=== PATIENT | female | born 1945 ===

== ENCOUNTER 2020-06-17 10:14 | Emergency (ER) | payer OTHER ==
[~2020-06-17] VITALS: Ht 157.5 cm; Wt 83.9 kg
[2020-06-17] MEDS ORDERED: ECOTRIN81 MG (10:25)
[2020-06-17] MEDS ORDERED: TENORMIN25 MG (10:25)
[2020-06-17] MEDS ORDERED: SYNTHROID50 MCG (10:26)
[2020-06-17] MEDS ORDERED: LEVSIN/SL0.125 MG SL (16:16)
[2020-06-17] MEDS ORDERED: PEPCID AC20 MG PO (16:16)
[2020-06-17] MEDS ORDERED: CARAFATE1 GM PO (16:17)
== END 2020-06-17 16:40 | disposition home or self-care (01) ==
LOC: ER 10:14
DX: K57.30 Diverticulosis of large intestine without perforation or abscess without bleeding (principal); R10.84 Generalized abdominal pain